=== PATIENT | female | born 1970 | race Caucasian/White ===

== ENCOUNTER 2017-03-17 23:40 | Emergency (ER) | payer OTHER ==
[~2017-03-17] VITALS: Ht 162.6 cm; Wt 86.2 kg
[~2017-03-17 23:40] MED LIST: DEPO150I IM; DICY1TAB26 PO; PROM25SU8 PO; ZOFR4TAB3 SL
[2017-03-17 23:47] VITALS: BP 147/86; PULSE 104; RESP 16; TEMP 98.6; O2SAT 98
[2017-03-18] MEDS ORDERED: SODIUM CHLOR 0.9% 1000 ML INJ 1,000 ML IV ONE (00:04)
[2017-03-18] MEDS ORDERED: ZOFR4TAB PO (00:07)
[2017-03-18] MEDS ORDERED: DEPO150I IM (00:08)
--- NOTE | 2017-03-18 00:13 | PD ---
HPI Chief Complaint: Flank/Kidney Pain Time Seen by Provider: 00:04 Travel History International Travel<30 days: No Contact w/Intl Traveler<30days: No Traveled to known affect area: No History of Present Illness HPI 46-year-old female presents to the emergency department by private transportation for complaint of one week of right flank pain sharp and stabbing and intermittent in nature. Patient's had associated nausea and vomiting. Patient denies fever or chills. Patient's had occasional diarrhea. Patient was seen in urgent care and given a prescription for Zofran which has provided minimal relief. Patient is evidence of been taking [id number] ibuprofen. Last dose was earlier in the afternoon. Patient has remote history of kidney stones. Patient denies and last menstrual period was several years ago she is on the Depo-Provera injection. PFS Past Medical History Narrative Medical Kidney stone; Ab1 D&C times one occasional alcohol use Arthritis: No Asthma: No Autoimmune Disease: No Blood Disorders: No Anxiety: No Depression: No Heart Rhythm Problems: No Cancer: No Cardiovascular Problems: No High Cholesterol: No Chemotherapy: No Chest Pain: No Congestive Heart Failure: No COPD: No Cerebrovascular Accident: No Diabetes: No Diminished Hearing: No Endocrine: No GERD: No Glaucoma: No Genitourinary: No Headaches: No Hepatitis: No Hiatal Hernia: No Hypertension: No Immune Disorder: No Kidney Stones: Yes Musculoskeletal: No Neurologic: No Psychiatric: No Reproductive: No Respiratory: No Migraines: No Myocardial Infarction: No Radiation Therapy: No Renal Failure: No Seizures: No Sickle Cell Disease: No Sleep Apnea: No Thyroid Disease: No Ulcer: No Tetanus Vaccination: < 5 Years Influenza Vaccination: No ?: Unknown LMP: "Depo-shot" : 3 Para: 2 Dilation and Curettage (D&C): Yes Past Surgical History Abdominal Surgery: No AICD: No Appendectomy: No Arteriovenous Shunt: No Cardiac Surgery: No Cholecystectomy: No Ear Surgery: No Eye Surgery: No Gynecologic Surgery: Yes (d&c 2004) Insulin Pump: No Joint Replacement: No Oral Surgery: No Pacemaker: No Thoracic Surgery: No Other Surgery: Yes (d&c 2004) Social History Alcohol Use: Yes (Occasionally ) Tobacco Use: No Substance Use: No Allergies-Medications (Allergen,Severity, Reaction): Coded Allergies: albuterol (Unverified Allergy, Severe, Hives, 03/18/17) Reported Meds & Prescriptions Reported Meds & Active Scripts Active Reported Depo-Provera Inj (Medroxyprogesterone Inj) 150 Mg/Ml Inj 150 Mg IM Q90D Zofran (Ondansetron HCl) 4 Mg Tab 4 Mg PO Q8HR PRN Review of Systems Except as stated in HPI: all other systems reviewed are Neg Physical Exam Narrative GENERAL: Well-developed well-nourished female in acute distress no respiratory distress SKIN: Warm and dry. HEAD: Normocephalic. EYES: No scleral icterus. No injection or drainage. NECK: Supple, trachea midline. No JVD or lymphadenopathy. CARDIOVASCULAR: Regular rate and rhythm without murmurs, gallops, or rubs. RESPIRATORY: Breath sounds equal bilaterally. No accessory muscle use. GASTROINTESTINAL: Abdomen soft, non-tender, nondistended. MUSCULOSKELETAL: No cyanosis, or edema. BACK: Nontender without obvious deformity. Mild right-sided CVA tenderness. Data Data Last Documented VS Vital Signs Date Time Temp Pulse Resp B/P (MAP) Pulse Ox O2 Delivery O2 Flow Rate FiO2 03/17/17 23:47 98.6 104 16 147/86 (106) 98 Orders Orders Complete Blood Count With Diff (03/18/17 00:04) Comprehensive Metabolic Panel (03/18/17 00:04) Urinalysis - C+S If Indicated (03/18/17 00:04) Ed Urine Pregnancytest Poc (03/18/17 00:04) Ecg Monitoring (03/18/17 00:04) Iv Access Insert/Monitor (03/18/17 00:04) Ketorolac Inj (Toradol Inj) (03/18/17 00:15) Ondansetron Inj (Zofran Inj) (03/18/17 00:15) Sodium Chloride 0.9% Flush (Ns Flush) (03/18/17 00:15) Sodium Chlor 0.9% 1000 Ml Inj (Ns 1000 M (03/18/17 00:04) Ct Abd/Pel W/O Iv Contrast (03/18/17 ) Potassium Chloride (Kcl) (03/18/17 01:15) Labs Laboratory Tests Test 03/18/17 00:22 03/18/17 00:30 Urine Color YELLOW Urine Turbidity CLEAR Urine pH 5.5 Urine Specific [place] 1.028 Urine Protein TRACE mg/dL Urine Glucose (UA) NEG mg/dL Urine Ketones TRACE mg/dL Urine Occult Blood SMALL Urine Nitrite NEG Urine Bilirubin NEG Urine Leukocyte Esterase NEG Urine RBC 0-3 /hpf Urine WBC 3-5 /hpf Urine Squamous Epithelial Cells 6-8 /hpf Urine Calcium Oxalate Crystals MOD /hpf Urine Mucus FEW /lpf Microscopic Urinalysis Comment CULT NOT INDICATED White Blood Count 14.6 TH/MM3 Red Blood Count 5.71 MIL/MM3 Hemoglobin 16.1 GM/DL Hematocrit 47.8 % Mean Corpuscular Volume 83.7 FL Mean Corpuscular Hemoglobin 28.3 PG Mean Corpuscular Hemoglobin Concent 33.8 % Red Cell Distribution Width 13.2 % Platelet Count 294 TH/MM3 Mean Platelet Volume 9.5 FL Neutrophils (%) (Auto) 72.3 % Lymphocytes (%) (Auto) 19.7 % Monocytes (%) (Auto) 4.9 % Eosinophils (%) (Auto) 2.5 % Basophils (%) (Auto) 0.6 % Neutrophils # (Auto) 10.5 TH/MM3 Lymphocytes # (Auto) 2.9 TH/MM3 Monocytes # (Auto) 0.7 TH/MM3 Eosinophils # (Auto) 0.4 TH/MM3 Basophils # (Auto) 0.1 TH/MM3 CBC Comment DIFF FINAL Differential Comment Blood Urea Nitrogen 11 MG/DL Creatinine 0.84 MG/DL Random Glucose 159 MG/DL Total Protein 7.7 GM/DL Albumin 3.9 GM/DL Calcium Level 8.9 MG/DL Alkaline Phosphatase 73 U/L Aspartate Amino Transf (AST/SGOT) 12 U/L Alanine Aminotransferase (ALT/SGPT) 22 U/L Total Bilirubin 0.7 MG/DL Sodium Level 138 MEQ/L Potassium Level 3.2 MEQ/L Chloride Level 106 MEQ/L Carbon Dioxide Level 19.0 MEQ/L Anion Gap 13 MEQ/L Estimat Glomerular Filtration Rate 73 ML/MIN [facility] Medical Decision Making Medical Screen Exam Complete: Yes Emergency Medical Condition: Yes Medical Record Reviewed: Yes Interpretation(s) UA: calcium oxylate crystals POC hcg: negative Last Impressions Abdomen/Pelvis CT 03/18/17 0000 Signed Impressions: Service Date/Time: Saturday, March 18, 2017 00:29 - CONCLUSION: Normal examination. Sukhi Naik MD CBC & BMP Diagram 03/18/17 00:30 Total Protein 7.7, Albumin 3.9, Calcium Level 8.9, Alkaline Phosphatase 73, Aspartate Amino Transf (AST/SGOT) 12 L, Alanine Aminotransferase (ALT/SGPT) 22, Total Bilirubin 0.7 Vital Signs Date Time Temp Pulse Resp B/P (MAP) Pulse Ox O2 Delivery O2 Flow Rate FiO2 03/17/17 23:47 98.6 104 16 147/86 (106) 98 Differential Diagnosis Flank pain renal colic musculoskeletal pain UTI biliary colic appendicitis Narrative Course IV access obtained specimens collected and sent for resulting patient measured Toradol 30 mg IV Zofran 4 mg IV [address] abdomen and pelvis kidney stone protocol ordered to be performed after [id number] hCG identified to be negative Patient with leukocytosis by CBC is automated differential otherwise chemistries and urinalysis unremarkable [id number] hCG negative CT abdomen and pelvis reveals no acute intra-abdominal or pelvic process Patient is clinically improved and stable for outpatient management Diagnosis Primary Impression: Gastroenteritis Referrals: Primary Care Physician call for appointment Patient Instructions: General Instructions Additional Instructions: Increase fluid hydration Follow clear liquid diet for next 12-24 hours advance as tolerated to bland/ [place] diet and regular diet Take acetaminophen/Tylenol as needed for fever 100.4F or greater Take Advil/Motrin/ibuprofen 800 mg as often as every 8 hours as needed for fever 100.4F or greater or for pain associated with inflammation Continue Zofran 4 mg as often as every 6 hours as needed for nausea and/or vomiting May use Phenergan 25 mg every 6-8 hours as needed for nausea and/or vomiting Follow-up with her primary care provider Return to the emergency for free concerns or change in condition Med/Other Pt SpecificInfo: Prescription(s) given Scripts Promethazine (Phenergan) 25 Mg Tablet 25 MG PO Q6H Y for NAUSEA OR VOMITING, #7 TAB 0 Refills Prov: Laura Nunn MD 03/18/17 Disposition: 01 DISCHARGE HOME Condition: Stable Laura Nunn MD Mar 18, 2017 00:13
[2017-03-18] MEDS ORDERED: KETOROLAC TROMETHAMINE 30 MG/ML (IVP) VIAL IVP ONE (00:15)
[2017-03-18] MEDS ORDERED: ONDANSETRON HCL 4 MG/2 ML VIAL IVP ONE (00:15)
[2017-03-18] MEDS ORDERED: SODIUM CHLORIDE 0.9% FLUSH 10 ML FLUSH IVF PRN (00:15)
[2017-03-18 00:39] LABS: AUTOMATED NEUTROPHIL # 10.5 TH/MM3 (1.8-7.7); BASOPHIL # 0.1 TH/MM3 (0-0.2); BASOPHIL % 0.6 % (0.0-2.0); EOSINOPHIL # 0.4 TH/MM3 (0-0.4); EOSINOPHIL % 2.5 % (0.0-4.0); HEMATOCRIT 47.8 % (35.0-46.0); LYMPH % 19.7 % (9.0-44.0); LYMPHOCYTE # 2.9 TH/MM3 (1.0-4.8); MEAN CELL VOLUME 83.7 FL (80.0-100.0); MEAN CORPUSCULAR HEMOGLOBIN 28.3 PG (27.0-34.0); MEAN CORPUSCULAR HGB CONC 33.8 % (32.0-36.0); MONO % 4.9 % (0.0-8.0); NEUT % 72.3 % (16.0-70.0); PLATELET COUNT 294 TH/MM3 (150-450); RED BLOOD COUNT 5.71 MIL/MM3 (4.00-5.30); RED CELL DISTRIBUTION WIDTH 13.2 % (11.6-17.2); WHITE BLOOD COUNT 14.6 TH/MM3 (4.0-11.0)
[2017-03-18 00:41] LABS: BLOOD, URINE SMALL (NEG); GLUCOSE,URINE NEG (NEG); KETONE, URINE TRACE mg/dL (NEG); NITRITE,URINE NEG (NEG); PH, URINE 5.5 (5.0-8.5)
[2017-03-18 00:42] LABS: HEMO FLAGS DIFF FINAL
[2017-03-18 00:50] LABS: URINE COLOR YELLOW (YELLW/STRAW)
[2017-03-18 00:51] LABS: MUCUS URINE FEW /lpf (OCC); RBC, URINE 0-3 /hpf (0-3)
[2017-03-18 00:52] LABS: CALCIUM OXALATE CRYSTALS,URINE MOD /hpf; COMMENT (UR) CULT NOT INDICATED; CULTURE IF INDICATED CULT NOT INDICATED
--- NOTE | 2017-03-18 00:54 | RADRPT ---
EXAM DATE/TIME: 03/18/2017 00:29 [facility] COMPARISON: CT ABDOMEN & PELVIS W/O CONTRAST, April 23, 2010, 0:32. INDICATIONS : Back and Right flank pain, diarrhea, nausea for 1 week. ORAL CONTRAST: No oral contrast ingested. RADIATION DOSE: 19.07 CTDIvol (mGy) MEDICAL HISTORY : Renal calculi. SURGICAL HISTORY : None. ENCOUNTER: Initial ACUITY: 1 week PAIN SCALE: 8/10 LOCATION: Right flank TECHNIQUE: Volumetric scanning of the abdomen and pelvis was performed. Using automated exposure control and ad justment of the mA and/or kV according to patient size, radiation dose was kept as low as reasonably achievable to obtain optimal diagnostic quality images. DICOM format image data is available electro nically for review and comparison. FINDINGS: LOWER LUNGS: The visualized lower lungs are clear. LIVER: Homogeneous density without lesion. There is no dilation of the biliary tree. No calcified gallston es. SPLEEN: Normal size without lesion. PANCREAS: Within normal limits. KIDNEYS: Normal in size and shape. There is no mass, stone, or hydronephrosis. ADRENAL GLANDS: Within normal limits. VASCULAR: There is no aortic aneurysm. BOWEL/MESENTERY: The stomach, small bowel, and colon demonstrate no acute abnormality. There is no free intraperitone al air or fluid. ABDOMINAL WALL: Within normal limits. RETROPERITONEUM: There is no lymphadenopathy. BLADDER: No wall thickening or mass. REPRODUCTIVE: Within normal limits. INGUINAL: There is no lymphadenopathy or hernia. MUSCULOSKELETAL: Within normal limits for patient age. CONCLUSION: Normal examination. Sukhi Naik MD on March 18, 2017 at 0:51 Board Certified Radiologist. This report was verified electronically.
[2017-03-18 01:01] LABS: CHLORIDE 106 MEQ/L (98-107); POTASSIUM 3.2 MEQ/L (3.5-5.1); SODIUM (NA) 138 MEQ/L (136-145)
[2017-03-18 01:05] LABS: ANION GAP 13 MEQ/L (5-15); BLOOD UREA NITROGEN 11 MG/DL (7-18)
[2017-03-18 01:08] LABS: ALT (GPT) 22 U/L (10-53); AST (GOT) 12 U/L (15-37); GLOMERULAR FILTRATION RATE 73 ML/MIN (>89)
[2017-03-18 01:09] LABS: TOTAL BILIRUBIN ADULT 0.7 MG/DL (0.2-1.0)
[2017-03-18 01:11] LABS: ALKALINE PHOSPHATASE 73 U/L (45-117)
[2017-03-18] MEDS ORDERED: POTASSIUM CHLORIDE 20 MEQ CONTROLLED RELEASE TAB PO ONE (01:15)
[2017-03-18] MEDS ORDERED: PROM25TA10 PO (01:36)
[2017-03-18 02:34] VITALS: BP 133/77
== END 2017-03-18 02:45 | disposition home or self-care (01) ==
LOC: PHED 23:40
DX: K52.9 Noninfective gastroenteritis and colitis, unspecified (principal); Z87.442 Personal history of urinary calculi
CPT/HCPCS: 74176; 80053; 81001; 84703; 85025; 96361; 96374; 96375; 99285; J1885; J2405; J7030